=== PATIENT | male | born 1965 | race Caucasian/White ===

== ENCOUNTER 2024-11-10 11:29 | Outpatient (CLI) | payer OTHER, SELFPAY ==
--- NOTE | 2024-11-10 | DI.RAD_ITS ---
Exam(s) XR FOOT LT COMPLETE EXAM: XR FOOT LT COMPLETE CLINICAL HISTORY: ACUTE PAIN LT FOOT, M79.672. TECHNIQUE: 2D digital imaging was performed of the left foot. Three images were obtained. AP, oblique and lateral views were obtained. COMPARISON: No exams were available for comparison FINDINGS: BONES: There is a displaced fracture through the base of the 5th metatarsal. There is a plantar calcaneal spur. The 4th toe is swollen with calcifications seen in the soft tissues around the PIP joint. There are question of destructive changes involving the lateral aspects of the head of the proximal phalanx and base of the middle phalanx of the 4th toe. JOINTS: No dislocation present. SOFT TISSUE: Normal. IMPRESSION: 1. Acute displaced fracture through the base of the 5th metatarsal. 2. Abnormality seen of the 4th toe including soft tissue swelling, soft tissue calcifications and question of destructive changes involving the proximal and middle phalanges. Further evaluation with MRI without and with contrast of the 4th toe is recommended. DATA REPOSITORY: RADIATION DOSE DELIVERED:
== END 2024-11-10 11:49 ==
LOC: DI 11:33
PROVIDERS: Visit Provider Nurse Practitioner Family
DX: S92.351D Displaced fracture of fifth metatarsal bone, right foot, subsequent encounter for fracture with routine healing (principal); X58.XXXD Exposure to other specified factors, subsequent encounter
CPT/HCPCS: 73630

== ENCOUNTER 2024-12-07 16:00 | Outpatient (CLI) | payer OTHER, SELFPAY ==
--- NOTE | 2024-12-07 16:06 | DI.RAD_ITS ---
Exam(s) XR FOOT LT COMPLETE EXAM: XR FOOT LT COMPLETE CLINICAL HISTORY: Displaced fx of 5th metatarsal bone, lt foot, S92.352A, S92.902A; pain in. TECHNIQUE: 2D digital imaging was performed of the left foot. Three images were obtained. AP, oblique and lateral views were obtained. COMPARISON: CR XR FOOT LT COMPLETE from 11/10/2024 FINDINGS: BONES: There is stable alignment of the fracture of the base of the 5th metatarsal. No new fracture is seen. Stable soft tissue in bony changes are seen in the 4th toe. There is a small plantar calcaneal spur. JOINTS: No dislocation present. SOFT TISSUE: Normal. IMPRESSION: 1. Stable alignment of the 5th metatarsal fracture. 2. Stable appearance of the right 4th toe. MRI of the 4th toe without and with contrast is recommended for further evaluation. DATA REPOSITORY: RADIATION DOSE DELIVERED:
== END 2024-12-07 16:20 ==
LOC: DI 16:01
PROVIDERS: Visit Provider Podiatrist
DX: S92.352A Displaced fracture of fifth metatarsal bone, left foot, initial encounter for closed fracture (principal); M79.672 Pain in left foot; X58.XXXA Exposure to other specified factors, initial encounter
CPT/HCPCS: 73630

== ENCOUNTER 2024-12-29 07:41 | Outpatient (CLI) | payer OTHER, SELFPAY ==
--- NOTE | 2024-12-29 05:45 | DI.RAD_ITS ---
Exam(s) XR FOOT LT COMPLETE EXAM: XR FOOT LT COMPLETE CLINICAL HISTORY: ? consolidating,displaced fx 5th metatarsal bone,lt foot pain,s92.352a. TECHNIQUE: 2D digital imaging was performed. Three views. COMPARISON: CR XR FOOT LT COMPLETE from 11/10/2024 CR XR FOOT LT COMPLETE from 12/07/2024 FINDINGS: BONES: Stable alignment of fracture at the base of the 5th metatarsal. Stable appearance erosions at the 4th PIP joint. JOINTS: No dislocation present. SOFT TISSUE: Norm stable appearance of calcifications around the 4th PIP joint. IMPRESSION: Stable alignment of the 5th metatarsal fracture. Stable appearance of erosions and adjacent calcifications around the 4th PIP joint. DATA REPOSITORY: RADIATION DOSE DELIVERED:
== END 2024-12-29 08:01 ==
LOC: DI 07:42
PROVIDERS: Visit Provider Podiatrist
DX: S92.352A Displaced fracture of fifth metatarsal bone, left foot, initial encounter for closed fracture (principal); M79.672 Pain in left foot; X58.XXXA Exposure to other specified factors, initial encounter
CPT/HCPCS: 73630